=== PATIENT | female | born 1985 | race Caucasian/White ===

== ENCOUNTER 2024-01-11 06:19 | Day surgery (SDC) | payer BC, SELFPAY ==
[2024-01-11] VITALS (11 sets, daily range): BP systolic 97–127; BP diastolic 53–74; BMI 40.9
[2024-01-11] MEDS: TYLENOL 1000 MG PO (09:09)
[2024-01-11] MEDS: NORMOSOL-R/PLASMALYTE-A 1000 IV (09:11)
[2024-01-11] MEDS: ZOFRAN 4 MG IV (12:45)
[2024-01-11] MEDS: DILAUDID 0.25 MG IV (12:50)
[2024-01-11] MEDS: TORADOL 30 MG IV (13:22)
[2024-01-11] MEDS: ROXICODONE 5 MG PO (14:41)
== END 2024-01-11 15:00 | disposition home or self-care (01) ==
LOC: SDS 06:19
PROVIDERS: ATTENDING PHYSICIAN Surgery
DX: K80.10 Calculus of gallbladder with chronic cholecystitis without obstruction (principal)
CPT/HCPCS: 47563; 88304; 74300; 76000; A4300